=== PATIENT | male | born 2000 | race Caucasian/White ===

== ENCOUNTER 2019-03-25 21:09 | Emergency (ER) | payer BC, OTHER ==
[~2019-03-25] VITALS: Ht 172.7 cm; Wt 77.7 kg
[2019-03-25] MEDS ORDERED: IBUPROFEN 600 MG TAB PO ONE (21:45)
[2019-03-25] MEDS ORDERED: IBUP-1022 PO (22:31)
[2019-03-25 22:45] VITALS: BP 131/77
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
== END 2019-03-25 23:06 | disposition home or self-care (01) ==
LOC: M ED 21:09
DX: T14.8XXA Other injury of unspecified body region, initial encounter (principal); V03.19XA Pedestrian with other conveyance injured in collision with car, pick-up truck or van in traffic accident, initial encounter; Y92.410 Unspecified street and highway as the place of occurrence of the external cause; Y93.9 Activity, unspecified; Y99.9 Unspecified external cause status; M79.89 Other specified soft tissue disorders

== ENCOUNTER 2023-02-10 13:23 | Inpatient (IN) | payer MEDICAID, OTHER ==
[~2023-02-10] VITALS: Ht 185.4 cm; Wt 73.3 kg
[~2023-02-10 13:23] MED LIST: IBUP-1022 PO
[2023-02-10] MEDS ORDERED: BUSP1TAB PO (13:34)
[2023-02-10] MEDS ORDERED: HYDR50TA70 PO (13:34)
[2023-02-10 17:58] LABS: HEMATOCRIT 40.6 % (42.0-52.0); HEMOGLOBIN 14.4 g/dl (13.5-17.5); MEAN CORPUSCULAR HEMOGLOBIN 31.2 pg (27.0-33.0); MEAN CORPUSCULAR HGB CONC 35.5 g/dl (32.0-36.5); MEAN CORPUSCULAR VOLUME 88.1 fl (80.0-96.0); PLATELET COUNT, AUTOMATED 345 10^3/uL (150-450); RED BLOOD COUNT 4.61 10^6/uL (4.30-6.10); WHITE BLOOD COUNT 8.1 10^3/uL (4.0-10.0)
[2023-02-10 18:18] LABS: AMPHETAMINES LEVEL URINE NEGATIVE (NEGATIVE); BARBITURATES URINE NEGATIVE (NEGATIVE); BENZODIAZEPINES URINE NEGATIVE (NEGATIVE); CANNABINOIDS URINE NEGATIVE (NEGATIVE); COCAINE METABOLITE URINE NEGATIVE (NEGATIVE); METHADONE URINE NEGATIVE (NEGATIVE); OPIATES URINE NEGATIVE (NEGATIVE); PHENCYCLIDINE URINE NEGATIVE (NEGATIVE)
[2023-02-10 18:20] LABS: ETHYL ALCOHOL (ETHANOL) < 0.003 % (0.000-0.010)
[2023-02-10 18:21] LABS: ACETAMINOPHEN LEVEL < 2.0 UG/ML (10.0-20.0); ALBUMIN 4.2 G/DL (3.2-5.2); ALKALINE PHOSPHATASE 73 U/L (46-116); ALT/SGPT < 9 U/L (7.0-40); AST/SGOT < 8 U/L (<34); BILIRUBIN,DIRECT 0.6 MG/DL (<0.4); BILIRUBIN,TOTAL 1.8 MG/DL (0.3-1.2); BLOOD UREA NITROGEN 14 MG/DL (9-23); CALCIUM LEVEL 9.2 MG/DL (8.5-10.1); CARBON DIOXIDE LEVEL 26 MMOL/L (20-31); CHLORIDE LEVEL 106 MMOL/L (98-107); CREATININE FOR GFR 0.74 MG/DL (0.70-1.30); GLOMERULAR FILTRATION RATE > 60.0 (>60); GLUCOSE, FASTING 83 MG/DL (60-100); POTASSIUM SERUM 4.1 MMOL/L (3.5-5.1); SALICYLATE LEVEL < 3.0 MG/DL (<30); SODIUM LEVEL 140 MMOL/L (136-145); TOTAL PROTEIN 6.8 G/DL (5.7-8.2)
[2023-02-10 18:28] LABS: THYROID STIMULATING HORMONE 2.921 uIU/ML (0.55-4.78)
[2023-02-10] MEDS ORDERED: MED REC IN PROGRESS XX SCH (18:40)
[2023-02-10] MEDS ORDERED: LORA1TAB23 PO (19:05)
[2023-02-10] MEDS ORDERED: FLUO10CA18 PO (19:05)
[2023-02-10] MEDS ORDERED: CYAN-1 PO (19:05)
[2023-02-10] MEDS ORDERED: HOME MED LIST COMPLETE! XX SCH (19:10)
[2023-02-10] MEDS ORDERED: ACETAMINOPHEN TAB 650MG DOSE (2X325MG) PO PRN (19:15)
[2023-02-10] MEDS ORDERED: MAALOX 30 ML SUSP *UDC PO PRN (19:15)
[2023-02-10] MEDS ORDERED: diphenhydrAMINE 25MG CAP PO PRN (19:15)
[2023-02-10] MEDS ORDERED: IBUPROFEN 400MG TAB PO PRN (19:15)
[2023-02-10] MEDS ORDERED: MOM 30ML SUSPENSION UDC PO PRN (19:15)
[2023-02-10 23:49] VITALS: BP 119/82; TEMP 97.9; O2SAT 99
[2023-02-11 06:22] VITALS: BP 148/68; TEMP 97.2; O2SAT 99
[2023-02-11] MEDS ORDERED: cloNIDine 0.1MG TABLET PO PRN (11:00)
[2023-02-11] MEDS: busPIRone 5 MG TAB PO SCH ×2 (11:37→21:38)
[2023-02-11] MEDS: FLUoxetine 20MG CAP PO SCH (11:38)
[2023-02-11 18:00] VITALS: BP 124/65; TEMP 97.7; O2SAT 97
[2023-02-11] MEDS: traZODone 50 MG TAB PO PRN (21:38)
[2023-02-12 06:22] VITALS: BP 114/60; TEMP 97.7; O2SAT 98
[2023-02-12] MEDS: FLUoxetine 20MG CAP PO SCH (08:11)
[2023-02-12] MEDS: busPIRone 5 MG TAB PO SCH ×2 (08:11→20:47)
[2023-02-12 18:00] VITALS: BP 104/61; TEMP 98.6; O2SAT 99
[2023-02-12] MEDS: traZODone 50 MG TAB PO PRN (20:47)
[2023-02-13 05:58] VITALS: BP 111/62; TEMP 98.8; O2SAT 98
[2023-02-13] MEDS: busPIRone 5 MG TAB PO SCH ×2 (09:49→20:58)
[2023-02-13] MEDS: FLUoxetine 20MG CAP PO SCH (09:49)
[2023-02-13 18:06] VITALS: BP 127/70; TEMP 97.8; O2SAT 100
[2023-02-13] MEDS: traZODone 50 MG TAB PO PRN (20:58)
[2023-02-14 07:00] VITALS: BP 111/57; TEMP 97.3; O2SAT 97
[2023-02-14] MEDS: FLUoxetine 20MG CAP PO SCH (08:21)
[2023-02-14] MEDS: busPIRone 5 MG TAB PO SCH ×2 (08:21→21:00)
[2023-02-14 16:27] VITALS: BP 128/58; TEMP 97.7; O2SAT 97
[2023-02-14] MEDS: hydrOXYzine 50 MG TAB PO SCH (21:00)
[2023-02-15 06:48] VITALS: BP 114/59; TEMP 97.7; O2SAT 98
[2023-02-15] MEDS: busPIRone 5 MG TAB PO SCH ×2 (08:23→20:58)
[2023-02-15] MEDS: FLUoxetine 20MG CAP PO SCH (08:23)
[2023-02-15 16:41] VITALS: BP 110/63; TEMP 97.9; O2SAT 99
[2023-02-15] MEDS: hydrOXYzine 50 MG TAB PO SCH (20:35)
[2023-02-16 06:25] VITALS: BP 116/62; TEMP 97; O2SAT 98
[2023-02-16] MEDS: FLUoxetine 20MG CAP PO SCH (08:15)
[2023-02-16] MEDS: busPIRone 5 MG TAB PO SCH (08:15)
[2023-02-16] MEDS ORDERED: HYDR50TA70 PO ×2 (09:19→09:36)
[2023-02-16] MEDS ORDERED: BUSP10TA PO ×2 (09:19→09:36)
[2023-02-16] MEDS ORDERED: FLUO20CA22 PO ×2 (09:19→09:36)
[2023-02-16] MEDS ORDERED: TRAZ-252 PO ×2 (09:19→09:36)
== END 2023-02-16 10:58 | disposition home or self-care (01) | DRG 751 ==
LOC: M ED 13:23 → M ED INP 19:15 → M PSY 23:11
PROVIDERS: ADMIT Student in an Organized Health Care Education/Training Program; ATTEND Student in an Organized Health Care Education/Training Program
DX: F32.1 Major depressive disorder, single episode, moderate (principal); F41.1 Generalized anxiety disorder; F41.0 Panic disorder [episodic paroxysmal anxiety]; G47.20 Circadian rhythm sleep disorder, unspecified type; Z79.899 Other long term (current) drug therapy; Z20.822 Contact with and (suspected) exposure to COVID-19; Z81.1 Family history of alcohol abuse and dependence